=== PATIENT | male | born 1960 ===

== ENCOUNTER 2023-08-15 21:52 | Emergency (ER) | payer OTHER ==
[~2023-08-15] VITALS: Ht 170.2 cm; Wt 56.8 kg
[2023-08-15 23:08] VITALS: BP 148/88; PULSE 55; RESP 17; TEMP 97.9
[2023-08-16] MEDS: KETOROLAC TROMETHAMINE 60 MG/2 ML VIAL IM ONE (00:56)
[2023-08-16] MEDS: PERTUSS(ACELL),DIPH,TET/PF 0.5 ML SYRINGE [ADULT] IM. ONE (00:57)
== END 2023-08-16 00:57 | disposition home or self-care (01) ==
LOC: EMS 21:52 → EDUNIT# 21:52 → EMS 08-16 00:57
DX: S05.12XA Contusion of eyeball and orbital tissues, left eye, initial encounter (principal); Y04.0XXA Assault by unarmed brawl or fight, initial encounter; Y93.89 Activity, other specified; Y92.89 Other specified places as the place of occurrence of the external cause; Y99.8 Other external cause status
CPT/HCPCS: 99285; 70486; 90715; 90471; 96372; J1885